=== PATIENT | male | born 1970 | race Caucasian/White ===

== ENCOUNTER 2023-11-20 10:24 | Emergency (ER) | payer SELFPAY ==
[2023-11-20] MEDS ORDERED: Sodium Chloride 0.9% 100 ML ONE (10:38)
[2023-11-20] MEDS ORDERED: Morphine 10 MG/ML VIAL ONE (10:38)
[2023-11-20] MEDS ORDERED: Ondansetron PF 4 MG/2 ML Vial ONE (10:38)
[2023-11-20] MEDS ORDERED: cefTRIAXone (ROCEPHIN) 2 GM VIAL ONE (10:38)
[2023-11-20] MEDS ORDERED: Sodium Chloride 0.9% 1,000 ML ONE (10:51)
[2023-11-20] MEDS ORDERED: Boostrix 0.5 ML (Tdap) VIAL (>/=7 yrs of age) ONE (10:52)
[2023-11-20 10:55] LABS: #Basophils 0.1 thou/uL (0.0-0.2); #Eosinphils 0.1 thou/uL (0.0-0.7); #Lymphocytes 1.6 thou/uL (1.20-3.40); #Monocytes 0.4 thou/uL (0.11-0.59); #Neutrophils 2.7 thou/uL (1.40-6.50); %Basophils 1.2 % (0.0-1.0); %Eosinophils 2.4 % (0.0-10.0); %Lymphocytes 31.8 % (21.0-51.0); %Monocytes 8.6 % (0.0-10.0); Hematocrit 49.8 % (42.0-52.0); Hemoglobin 15.5 g/dL (14.0-18.0); Mean Corpuscular HGB CONC 31.1 g/dL (32.0-36.0); Mean Corpuscular Hemoglobin 26.8 pg (27.0-31.0); Mean Corpuscular Volume 86.2 fl (78.0-98.0); Mean Platelet Volume 8.8 fL (7.4-10.4); Platelet Count 181 10x3/uL (130-400); Red Blood Cell (RBC) Count 5.77 mill/uL (4.70-6.10); White Blood Cell (WBC) Count 4.9 10x3/uL (4.8-10.8)
[2023-11-20] MEDS ORDERED: HYDROmorphone 0.5 MG/0.5 ML SYRINGE ONE (11:00)
[2023-11-20 11:03] LABS: PTT 23.8 sec (22.9-36.1); Prothrombin Time 12.7 sec (12.0-14.7)
[2023-11-20 11:12] LABS: ALT (SGPT) 15 U/L (8-55); AST (SGOT) 11 U/L (5-34); Albumin 4.3 g/dL (3.5-5.0); Alkaline Phosphatase 45 U/L (40-110); Anion Gap 18 mmol/L (10-20); BUN (Urea Nitrogen) 13 mg/dL (8.4-25.7); Bilirubin, Total 0.4 mg/dL (0.2-1.2); Calc. Creatinine Clearance 0 mL/min (70-130); Calcium 9.6 mg/dL (7.8-10.44); Carbon Dioxide 18 mmol/L (22-29); Chloride 102 mmol/L (98-107); Estimated GFR 85; Globulin 2.8 g/dL (2.4-3.5); Potassium 3.9 mmol/L (3.5-5.1); Protein, Total 7.1 g/dL (6.0-8.3); Sodium 134 mmol/L (136-145)
[2023-11-20 11:20] LABS: Critical Call Chemistry NUR.AW2@1119; Glucose 402 mg/dL (70-105)
== END 2023-11-20 11:27 | disposition short-term general hospital (02) ==
LOC: MADERS 10:24
DX: S52.591B Other fractures of lower end of right radius, initial encounter for open fracture type I or II (principal); S50.851A Superficial foreign body of right forearm, initial encounter; E11.65 Type 2 diabetes mellitus with hyperglycemia; I10 Essential (primary) hypertension; W23.1XXA Caught, crushed, jammed, or pinched between stationary objects, initial encounter; Y92.61 Building [any] under construction as the place of occurrence of the external cause
CPT/HCPCS: 25500; 80053; 85025; 85610; 85730; 86850; 86900; 86901; 90471; 90715; 96365; 96375; J0696; J1170; J2270; J2405; J7030